=== PATIENT | male | born 1955 | race African-American/Black ===

== ENCOUNTER 2018-11-13 10:20 | Inpatient (IN) | payer OTHER ==
[2018-11-13 10:34] VITALS: BMI 29.8
--- NOTE | 2018-11-13 10:56 | HP ---
CIWA Score Nausea/Vomitin Muscle Tremors: 2 Anxiety: 2 Agitation: 2 Paroxysmal Sweats: 1-Minimal Palms Moist Orientation: 0-Oriented Tacttile Disturbances: 1-Very Mild Itch/Numbness Auditory Disturbances: 1-Very Mild Visual Disturbances: 0-None Headache: 2-Mild CIWA-Ar Total Score: 13 - Admission Criteria OASAS Guidelines: Admission for Medically Managed Detox: Requires at least one of the followin. CIWA greater than 12 2. Seizures within the past 24 hours 3. Delirium tremens within the past 24 hours 4. Hallucinations within the past 24 hours 5. Acute intervention needed for co occurring medical disorder 6. Acute intervention needed for co occurring psychiatric disorder 7. Severe withdrawal that cannot be handled at a lower level of care (continued vomiting, continued diarrhea, abnormal vital signs) requiring intravenous medication and/or fluids 8. Patient presents the following: CIWA greater than 12 Admission Criteria Met: Admission criteria met Admission ROS BHS - HPI Chief Complaint: i need help to stop drinking alcohol,cocaine,marijuana Allergies/Adverse Reactions: Allergies Allergy/AdvReac Type Severity Reaction Status Date / Time No Known Allergies Allergy Verified 11/13/18 10:48 History of Present Illness: this 62 years old male with alcohol,cocaine and marijuana dependence,seeking detox,withdrawal symptom,last detox [facility] 06/2006 completed longest period of sobriety 12 years s/p lap bariatric surgery in 2013 s/p right knee arthroscopic surgery of right knee in 2005,2007 history of obesity Exam Limitations: No Limitations - Ebola screening Have you traveled outside of the country in the last 21 days: No Have you had contact with anyone from an Ebola affected area: No Have you been sick,other than usual withdrawal symptoms: No - Review of Systems Constitutional: Night Sweats, Changes in sleep EENT: reports: Nose Congestion Respiratory: reports: No Symptoms reported Cardiac: reports: No Symptoms Reported GI: reports: Nausea, Poor Appetite, Abdominal cramping : reports: No Symptoms Reported Musculoskeletal: reports: Back Pain, Muscle Pain Integumentary: reports: Dryness Neuro: reports: Headache, Tremors Endocrine: reports: No Symptoms Reported Hematology: reports: No Symptoms Reported Psychiatric: reports: No Sypmtoms Reported, Judgement Intact, Mood/Affect Appropiate, Orientated x3 Other Systems: Reviewed and Negative Patient History - Patient Medical History Hx Anemia: No Hx Asthma: No Hx Chronic Obstructive Pulmonary Disease (COPD): No Hx Cancer: No Hx Cardiac Disorders: No Hx Congestive Heart Failure: No Hx Hypertension: No Hx Hypercholesterolemia: No Hx Pacemaker: No HX Cerebrovascular Accident: No Hx Seizures: No Hx Dementia: No Hx Diabetes: No Hx Gastrointestinal Disorders: No Hx Liver Disease: No Hx Genitourinary Disorders: No Hx Sexually Transmitted Disorders: No Hx Renal Disease (ESRD): No Hx Thyroid Disease: No Hx Human Immunodeficiency Virus (HIV): No (last 2011) Hx Hepatitis C: No Hx Depression: No Hx Suicide Attempt: No Hx Bipolar Disorder: No Hx Schizophrenia: No Other Medical History: no suicdal,no homicidal - Patient Surgical History Past Surgical History: Yes Hx Abdominal Surgery: Yes (s/p lap bariatric surgery in 2013) Hx Orthopedic Surgery: Yes (s/p arthroscopic of right knee ) - PPD History Previous Implant?: Yes Documented Results: Positive w/o proof Implanted On Prior [facility] Admission?: No PPD to be Administered?: No - Smoking Cessation Smoking history: Never smoked - Substance & Tx. History Hx Alcohol Use: Yes Hx Substance Use: Yes Substance Use Type: Alcohol, Cocaine, Marijuana Hx Substance Use Treatment: Yes ([facility] 07/03) - Substances Abused Alcohol Route: Oral Frequency: Daily Amount used: 2-3 12 oz beers/ 1 pint vodka Age of first use: 18 Date of Last Use: 11/13/18 Cocaine Route: Inhalation Frequency: 3-6 times per week Amount used: $100 Age of first use: 27 Date of Last Use: 11/12/18 Marijuana/Hashish Route: Smoking Frequency: Daily Amount used: 2-3 grams Age of first use: 16 Date of Last Use: 11/12/18 Family Disease History - Family Disease History Family History: Denies Admission Physical Exam BHS - Vital Signs Vital Signs: Vital Signs - 24 hr 11/13/18 10:32 Temperature 97.7 F Pulse Rate 69 Respiratory 18 Rate Blood Pressure 135/73 - Physical General Appearance: Yes: Moderate Distress, Tremorous, Irritable, Sweating, Anxious HEENTM: Yes: Normocephalic, MYA, Pharynx Normal Respiratory: Yes: Lungs Clear, Normal Breath Sounds, No Respiratory Distress Neck: Yes: Within Normal Limits, Supple, Trachea in good position Breast: Yes: Within Normal Limits Cardiology: Yes: Within Normal Limits, Regular Rhythm, Regular Rate, S1, S2 Abdominal: Yes: Within Normal Limits, Normal Bowel Sounds, Non Tender, Soft Genitourinary: Yes: Within Normal Limits Back: Yes: Muscle Spasm Musculoskeletal: Yes: Within Normal Limits, Back pain, Muscle Pain Extremities: Yes: Normal Range of Motion, Tremors Neurological: Yes: Within Normal Limits, [employer] service agent II-XII NML intact, Fully Oriented, Alert, Motor Strength 5/5 Integumentary: Yes: Dry Lymphatic: Yes: Within Normal Limits - Diagnostic (1) Alcohol dependence with uncomplicated withdrawal Current Visit: Yes Status: Acute (2) Cocaine dependence Current Visit: Yes Status: Acute (3) Cannabis dependence Current Visit: Yes Status: Acute (4) Obesity Current Visit: Yes Status: Acute (5) History of bariatric surgery Current Visit: Yes Status: Acute (6) Positive PPD Current Visit: Yes Status: Acute (7) History of right knee surgery Current Visit: Yes Status: Acute Cleared for Admission [facility] - Detox or Rehab [facility] Level of Care: Medically Managed Detox Regimen/Protocol: Librium [facility] Breath Alcohol Content Breath Alcohol Content: 0 Urine Drug Screen - Results Drug Screen Negative: No Urine Drug Screen Results: THC-Marijuana, MAC-Cocaine
[2018-11-13] MEDS ORDERED: hydrOXYzine PAMOATE 50 MG CAPSULE (FP) PO PRN (11:08)
[2018-11-13] MEDS ORDERED: MAGNESIUM CITRATE 300 ML BOTTLE PO PRN (11:08)
[2018-11-13] MEDS ORDERED: chlordiazePOXIDE HCL 25 MG CAPSULE PO PRN (11:08)
[2018-11-13] MEDS ORDERED: IBUPROFEN 400 MG TABLET (FP) PO PRN (11:08)
[2018-11-13] MEDS ORDERED: LOPERAMIDE HCL 2 MG CAPSULE PO PRN (11:08)
[2018-11-13] MEDS ORDERED: MAGNESIUM HYDROX 2400MG/30ML ORAL SUSPENSION 30 ML CUP PO PRN (11:08)
[2018-11-13] MEDS ORDERED: P-EPHED 60MG/TRIPROLIDI 2.5MG TABLET PO PRN (11:08)
[2018-11-13] MEDS ORDERED: MAG HYDROX/AL HYDROX/SIMETH 30 ML UNIT-DOSE CUP PO PRN (11:08)
--- NOTE | 2018-11-13 15:42 | EKG ---
Test Reason : Blood Pressure : / mmHG Vent. Rate : 068 BPM Atrial Rate : 068 BPM P-R Int : 140 ms QRS Dur : 104 ms QT Int : 406 ms P-R-T Axes : 073 -55 040 degrees QTc Int : 431 ms NORMAL SINUS RHYTHM LEFT ANTERIOR FASCICULAR BLOCK ABNORMAL ECG NO PREVIOUS ECGS AVAILABLE Confirmed by KERRY DOBBINS, SIMEON ([id number]) on 11/13/2018 3:42:35 PM Referred By: Confirmed By:SIMEON PAYNE MD
[2018-11-13] MEDS: chlordiazePOXIDE HCL 25 MG CAPSULE PO SCH ×2 (17:12→22:27)
[2018-11-13] MEDS ORDERED: MELATONIN 5 MG TABLETS PO PRN (22:00)
[2018-11-13] MEDS: THIAMINE HCL 100 MG TABLET (FP) PO SCH (22:28)
[2018-11-14] MEDS: chlordiazePOXIDE HCL 25 MG CAPSULE PO SCH ×4 (06:11→22:28)
[2018-11-14] MEDS: FLUTICASONE PROP 0.05% 16 GM NASAL SPRAY NS PRN (06:13)
[2018-11-14 10:23] LABS: HEMATOCRIT 41.5 % (35.4-49); HEMOGLOBIN 13.3 GM/dL (11.7-16.9); MCH 29.8 pg (25.7-33.7); MCHC 32.1 g/dl (32.0-35.9); MEAN CELL VOLUME 92.9 fl (80-96); MEAN PLT VOLUME 7.5 fl (7.5-11.1); PLATELET COUNT 255 K/MM3 (134-434); RBC 4.47 M/mm3 (4.00-5.60); RDW 13.9 % (11.9-15.9); WHITE BLOOD COUNT 5.1 K/mm3 (4.0-10.0)
[2018-11-14] MEDS: PRENATAL VITAMINS W/ FOLIC ACID TABLET (FP) PO SCH (10:46)
[2018-11-14 11:06] LABS: ALBUMIN 3.3 g/dl (3.4-5.0); ALK PHOS 61 U/L (45-117); ANION GAP 6 MMOL/L (8-16); BILIRUBIN,TOTAL 0.5 mg/dL (0.2-1); BLOOD UREA NITROGEN 14 mg/dL (7-18); CALCIUM 7.7 mg/dL (8.5-10.1); CHLORIDE 111 mmol/L (98-107); CO2 25 mmol/L (21-32); CREATININE 1.1 mg/dL (0.55-1.3); GLUCOSE,RANDOM 94 mg/dL (74-106); POTASSIUM 4.3 mmol/L (3.5-5.1); SGOT/AST 30 U/L (15-37); SGPT/ALT 46 U/L (13-61); SODIUM 142 mmol/L (136-145); TOT PROT 6.6 g/dl (6.4-8.2)
--- NOTE | 2018-11-14 14:59 | PN ---
S CIWA - CIWA Score Nausea/Vomitin-Mild Nausea/No Vomiting Muscle Tremors: 3 Anxiety: 3 Agitation: 2 Paroxysmal Sweats: 1-Minimal Palms Moist Orientation: 1-Uncertain about Date Tacttile Disturbances: 0-None Auditory Disturbances: 0-None Visual Disturbances: 0-None Headache: 2-Mild CIWA-Ar Total Score: 13 S Progress Note (SOAP) Subjective: tremor sweat restlessness tired low energy Objective: 11/14/18 15:04 Vital Signs Temperature 98.2 F 11/14/18 14:48 Pulse Rate 80 11/14/18 14:48 Respiratory Rate 18 11/14/18 14:48 Blood Pressure 115/76 11/14/18 14:48 O2 Sat by Pulse Oximetry (%) Laboratory Last Values WBC 5.1 K/mm3 (4.0-10.0) 11/14/18 07:00 RBC 4.47 M/mm3 (4.00-5.60) 11/14/18 07:00 Hgb 13.3 GM/dL (11.7-16.9) 11/14/18 07:00 Hct 41.5 % (35.4-49) 11/14/18 07:00 MCV 92.9 fl (80-96) 11/14/18 07:00 MCH 29.8 pg (25.7-33.7) 11/14/18 07:00 MCHC 32.1 g/dl (32.0-35.9) 11/14/18 07:00 RDW 13.9 % (11.9-15.9) 11/14/18 07:00 Plt Count 255 K/MM3 (134-434) 11/14/18 07:00 MPV 7.5 fl (7.5-11.1) 11/14/18 07:00 Sodium 142 mmol/L (136-145) 11/14/18 07:00 Potassium 4.3 mmol/L (3.5-5.1) 11/14/18 07:00 Chloride 111 mmol/L (98-107) H 11/14/18 07:00 Carbon Dioxide 25 mmol/L (21-32) 11/14/18 07:00 Anion Gap 6 MMOL/L (8-16) L 11/14/18 07:00 BUN 14 mg/dL (7-18) 11/14/18 07:00 Creatinine 1.1 mg/dL (0.55-1.3) 11/14/18 07:00 Creat Clearance w eGFR > 60 (>60) 11/14/18 07:00 Random Glucose 94 mg/dL (74-106) 11/14/18 07:00 Calcium 7.7 mg/dL (8.5-10.1) L 11/14/18 07:00 Total Bilirubin 0.5 mg/dL (0.2-1) 11/14/18 07:00 AST 30 U/L (15-37) 11/14/18 07:00 ALT 46 U/L (13-61) 11/14/18 07:00 Alkaline Phosphatase 61 U/L (45-117) 11/14/18 07:00 Total Protein 6.6 g/dl (6.4-8.2) 11/14/18 07:00 Albumin 3.3 g/dl (3.4-5.0) L 11/14/18 07:00 RPR Titer Nonreactive (NONREACTIVE) 11/14/18 07:00 lab noted low Ca++ Assessment: 11/14/18 15:05 withdrawal sx Plan: continue detox
[2018-11-14] MEDS: CALCIUM 250MG/VIT-D 125 UNITS 1 COMBO TABLET PO SCH (22:28)
[2018-11-14] MEDS: THIAMINE HCL 100 MG TABLET (FP) PO SCH (22:28)
[2018-11-15] MEDS: chlordiazePOXIDE HCL 25 MG CAPSULE PO SCH ×2 (05:38→10:06)
[2018-11-15] MEDS: CALCIUM 250MG/VIT-D 125 UNITS 1 COMBO TABLET PO SCH ×2 (10:06→22:21)
[2018-11-15] MEDS: PRENATAL VITAMINS W/ FOLIC ACID TABLET (FP) PO SCH (10:06)
[2018-11-15] MEDS: FLUTICASONE PROP 0.05% 16 GM NASAL SPRAY NS PRN (10:07)
[2018-11-15] MEDS: ACETAMINOPHEN 325 MG TABLET (FP) PO PRN (10:08)
--- NOTE | 2018-11-15 11:18 | PN ---
S CIWA - CIWA Score Nausea/Vomitin Muscle Tremors: None Anxiety: 2 Agitation: 2 Paroxysmal Sweats: 2 Orientation: 0-Oriented Tacttile Disturbances: 0-None Auditory Disturbances: 0-None Visual Disturbances: 0-None Headache: 0-None Present CIWA-Ar Total Score: 8 BHS Progress Note (SOAP) Subjective: Patient c/o nausea/diarrhea, interrupted sleep, night sweats and shakes. Objective: 11/15/18 11:17 Vital Signs Temperature 96.6 F L 11/15/18 09:05 Pulse Rate 95 H 11/15/18 09:05 Respiratory Rate 11/15/18 09:05 Blood Pressure 110/67 11/15/18 09:05 O2 Sat by Pulse Oximetry (%) Laboratory Tests 11/14/18 11/14/18 11/14/18 07:00 07:00 07:00 WBC 5.1 RBC 4.47 Hgb 13.3 Hct 41.5 MCV 92.9 MCH 29.8 MCHC 32.1 RDW 13.9 Plt Count 255 MPV 7.5 Sodium 142 Potassium 4.3 Chloride 111 H Carbon Dioxide 25 Anion Gap 6 L BUN 14 Creatinine 1.1 Creat Clearance w eGFR > 60 Random Glucose 94 Calcium 7.7 L Total Bilirubin 0.5 AST 30 ALT 46 Alkaline Phosphatase 61 Total Protein 6.6 Albumin 3.3 L RPR Titer Nonreactive PE: alert and oriented x 3 skin warm and dry +anxiety/restlessness ext full rom, mild tremors anna amb ad naomy Assessment: 11/15/18 11:18 withdrawal sx Plan: continue detox encourage oral fluids continue to monitor clinically
[2018-11-15] MEDS: guaiFENesin/D-METHORPHAN HB 10 ML UNIT-DOSE CUPS PO PRN (17:36)
[2018-11-15] MEDS: chlordiazePOXIDE 5 MG CAPSULE PO SCH ×2 (17:36→22:21)
[2018-11-15] MEDS: MENTHOL/PHENOL 1 EACH UD MM PRN ×2 (17:39→22:24)
[2018-11-15] MEDS: THIAMINE HCL 100 MG TABLET (FP) PO SCH (22:21)
[2018-11-16] MEDS: chlordiazePOXIDE 5 MG CAPSULE PO SCH ×2 (05:22→10:30)
[2018-11-16] MEDS: guaiFENesin/D-METHORPHAN HB 10 ML UNIT-DOSE CUPS PO PRN ×4 (05:22→22:16)
[2018-11-16] MEDS: MENTHOL/PHENOL 1 EACH UD MM PRN ×4 (05:23→22:16)
[2018-11-16] MEDS: PRENATAL VITAMINS W/ FOLIC ACID TABLET (FP) PO SCH (10:30)
[2018-11-16] MEDS: CALCIUM 250MG/VIT-D 125 UNITS 1 COMBO TABLET PO SCH ×2 (10:30→22:16)
[2018-11-16] MEDS: ACETAMINOPHEN 325 MG TABLET (FP) PO PRN ×2 (10:31→17:58)
--- NOTE | 2018-11-16 13:45 | PN ---
[facility] Progress Note Note: PATIENT CONTINUES WITH DETOX REGIMEN AND STATES " I FEELS BETTER." C/O MILD ANXIETY AND INSOMNIA. Vital Signs Temperature 96.8 F L 11/16/18 09:08 Pulse Rate 76 11/16/18 09:08 Respiratory Rate 16 11/16/18 09:08 Blood Pressure 99/57 L 11/16/18 09:08 O2 Sat by Pulse Oximetry (%) Laboratory Tests 11/14/18 11/14/18 11/14/18 07:00 07:00 07:00 WBC 5.1 RBC 4.47 Hgb 13.3 Hct 41.5 MCV 92.9 MCH 29.8 MCHC 32.1 RDW 13.9 Plt Count 255 MPV 7.5 Sodium 142 Potassium 4.3 Chloride 111 H Carbon Dioxide 25 Anion Gap 6 L BUN 14 Creatinine 1.1 Creat Clearance w eGFR > 60 Random Glucose 94 Calcium 7.7 L Total Bilirubin 0.5 AST 30 ALT 46 Alkaline Phosphatase 61 Total Protein 6.6 Albumin 3.3 L RPR Titer Nonreactive PE: ALERT AND ORIENTED X 3 SKIN WARM AND DRY EXT NO TREMORS, FULL ROM AMB AD RUTH WITHDRAWAL SX CONTINUE DETOX ENCOURAGE ORAL FLUIDS CONTINUE TO MONITOR CLINICALLY
[2018-11-16] MEDS: FLUTICASONE PROP 0.05% 16 GM NASAL SPRAY NS PRN ×2 (15:53→22:18)
[2018-11-16] MEDS: chlordiazePOXIDE HCL 10 MG CAPSULE PO SCH ×2 (17:57→22:16)
[2018-11-16] MEDS: THIAMINE HCL 100 MG TABLET (FP) PO SCH (22:16)
[2018-11-17] MEDS: chlordiazePOXIDE HCL 10 MG CAPSULE PO SCH (06:01)
[2018-11-17] MEDS: guaiFENesin/D-METHORPHAN HB 10 ML UNIT-DOSE CUPS PO PRN (06:02)
[2018-11-17] MEDS: MENTHOL/PHENOL 1 EACH UD MM PRN (06:03)
[2018-11-17 09:44] VITALS: BP 124/74; PULSE 112; TEMP 97.8
[2018-11-17] MEDS: PRENATAL VITAMINS W/ FOLIC ACID TABLET (FP) PO SCH (09:50)
[2018-11-17] MEDS: FLUTICASONE PROP 0.05% 16 GM NASAL SPRAY NS PRN (09:50)
[2018-11-17] MEDS: CALCIUM 250MG/VIT-D 125 UNITS 1 COMBO TABLET PO SCH (09:50)
--- NOTE | 2018-11-17 10:33 | DS ---
[facility] Detox Discharge Summary Admission Date: 11/13/18 Discharge Date: 11/17/18 - History Present History: Alcohol Dependence, Opioid Dependence - Physical Exam Results Vital Signs: Vital Signs Temperature 97.8 F 11/17/18 09:43 Pulse Rate 112 H 11/17/18 09:43 Respiratory Rate 18 11/17/18 09:43 Blood Pressure 124/74 11/17/18 09:43 O2 Sat by Pulse Oximetry (%) Pertinent Admission Physical Exam Findings: PATIENT COMPLETED DETOX REGIMEN WITHOUT ADVERSE EVENT. PATIENT ACCEPTED REHAB REFERRAL TO [facility]. PATIENT MEDICALLY STABLE AND DENIES SI/HI. PATIENT ENCOURAGED TO COMPLETE REHAB TO PREVENT RELAPSE AND TO FOLLOW UP WITH PCP WITHIN ONE WEEK OF D/C. PATIENT GIVEN D/C INSTRUCTIONS BY STAFF. - Treatment Hospital Course: Detox Protocol Followed, Detoxed Safely, Responded well, Discharged Condition Good, Rehab Referral Accepted Patient has Accepted a Rehab Referral to: [facility] - Medication Discharge Medications: Ambulatory Orders Fluticasone Prop 0.05% Nasal [Flonase -] 1 spray NS DAILY PRN 11/13/18 - Diagnosis (1) Alcohol dependence with uncomplicated withdrawal Current Visit: Yes Status: Resolved - AMA Did Patient Leave Against Medical Advice: No
== END 2018-11-17 09:56 | disposition home or self-care (01) | DRG 774 ==
LOC: YASAS 10:20 → Y3N 11:07
PROC: HZ2ZZZZ Detoxification Services for Substance Abuse Treatment (ICD-10-PCS; principal; 2018-11-13)
DX: F10.230 Alcohol dependence with withdrawal, uncomplicated (principal); F14.20 Cocaine dependence, uncomplicated; F12.20 Cannabis dependence, uncomplicated; E66.9 Obesity, unspecified; Z98.84 Bariatric surgery status
CPT/HCPCS: 36415; 71045-TC-FY; 80053; 85027; 86593; 93005; 93010